=== PATIENT | male | born 1965 | race Caucasian/White ===

== ENCOUNTER 2016-07-04 09:36 | Emergency (ER) | payer MEDICAID, OTHER ==
[~2016-07-04] VITALS: Ht 182.9 cm; Wt 87.0 kg
[~2016-07-04 09:36] MED LIST: IBUP800T23 PO; TRAM50 PO
[2016-07-04 09:38] VITALS: BP 143/85; PULSE 82; RESP 20; TEMP 97.8; O2SAT 98
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
[2016-07-04] MEDS ORDERED: NAPR500 PO ×2 (10:53→11:08)
== END 2016-07-04 11:13 | disposition home or self-care (01) ==
LOC: NEPB 09:36
DX: S60.221A Contusion of right hand, initial encounter (principal); J45.909 Unspecified asthma, uncomplicated; J44.9 Chronic obstructive pulmonary disease, unspecified; F17.210 Nicotine dependence, cigarettes, uncomplicated; F12.10 Cannabis abuse, uncomplicated; Y04.0XXA Assault by unarmed brawl or fight, initial encounter; Y93.89 Activity, other specified; Y99.9 Unspecified external cause status
CPT/HCPCS: 73130; 99283

== ENCOUNTER 2016-11-06 11:46 | Emergency (ER) | payer MEDICAID ==
[~2016-11-06] VITALS: Ht 182.9 cm; Wt 90.0 kg
[~2016-11-06 11:46] MED LIST changes: -IBUP800T23 PO; +NAPR500 PO; -TRAM50 PO
[2016-11-06 11:48] VITALS: BP 129/82; PULSE 78; RESP 26; TEMP 98.4; O2SAT 99
[2016-11-06] MEDS ORDERED: SODIUM CHLOR 0.9% 1000 ML INJ 1,000 ML IV SCH (12:39)
[2016-11-06] MEDS ORDERED: SODIUM CHLORIDE 0.9% FLUSH 10 ML FLUSH IV FLUSH PRN (12:45)
[2016-11-06 13:00] VITALS: BP 130/83; PULSE 68; RESP 20; O2SAT 99
[2016-11-06] MEDS ORDERED: IBUP200T2 PO (13:16)
[2016-11-06] MEDS ORDERED: ASPI1POW8 (13:16)
[2016-11-06 13:29] LABS: AUTOMATED NEUTROPHIL # 8.9 TH/MM3 (1.8-7.7); BASOPHIL # 0.2 TH/MM3 (0-0.2); BASOPHIL % 1.6 % (0.0-2.0); EOSINOPHIL # 0.1 TH/MM3 (0-0.4); EOSINOPHIL % 0.7 % (0.0-4.0); HEMATOCRIT 49.5 % (39.0-51.0); HEMO FLAGS DIFF FINAL; LYMPH % 13.6 % (9.0-44.0); LYMPHOCYTE # 1.6 TH/MM3 (1.0-4.8); MEAN CELL VOLUME 92.8 FL (80.0-100.0); MEAN CORPUSCULAR HEMOGLOBIN 31.7 PG (27.0-34.0); MEAN CORPUSCULAR HGB CONC 34.1 % (32.0-36.0); MONO % 8.2 % (0.0-8.0); NEUT % 75.9 % (16.0-70.0); PLATELET COUNT 273 TH/MM3 (150-450); RED BLOOD COUNT 5.33 MIL/MM3 (4.50-5.90); RED CELL DISTRIBUTION WIDTH 12.6 % (11.6-17.2); WHITE BLOOD COUNT 11.7 TH/MM3 (4.0-11.0)
[2016-11-06 13:46] LABS: BICARBONATE 23.5 MEQ/L (21.0-32.0); MAGNESIUM 2.8 MG/DL (1.5-2.5); POTASSIUM 3.9 MEQ/L (3.5-5.1)
[2016-11-06 14:00] VITALS: BP 129/68; PULSE 68; RESP 17; O2SAT 97
[2016-11-06] MEDS ORDERED: SODIUM CHLOR 0.9% 1000 ML INJ 1,000 ML IV ONE (14:00)
[2016-11-06 14:04] LABS: CKMB 4.5 NG/ML (0.5-3.6)
--- NOTE | 2016-11-06 14:05 | PD ---
HPI Chief Complaint: GI Complaint Time Seen by Provider: 13:13 Travel History International Travel<30 days: No Contact w/Intl Traveler<30days: No Traveled to known affect area: No History of Present Illness HPI 51-year-old male here with complaint of nausea and body aches and muscle spasms. Patient works in a warm garage and states that despite drinking 1 gallon of water daily he is concerned he may be dehydrated. Notes bodyaches, muscle spasms and nausea. He has not had any change in mental status. PFSH Past Medical History Hx Anticoagulant Therapy: No Asthma: Yes Cardiovascular Problems: No Chemotherapy: No COPD: Yes Cerebrovascular Accident: No Diabetes: No Respiratory: Yes Past Surgical History Abdominal Surgery: Yes (HERNIA REPAIR) Social History Alcohol Use: Yes (beer a day) Tobacco Use: Yes (pack & half a day) Substance Use: Yes (marijuana few days ago) Allergies-Medications (Allergen,Severity, Reaction): Coded Allergies: Tramadol (Verified Adverse Reaction, Unknown, Skin Discoloration, 07/04/16) STATES HAS NO ALLERGIES, IS NOT ALLERGIC TO TRAMADOL Reported Meds & Prescriptions Reported Meds & Active Scripts Active Reported Bc Fast Pain Relief Powder (Aspirin-Caffeine Powder) 845-65 Mg Powderpack Ibuprofen 200 Mg Tab 200 Mg PO Q4H PRN Review of Systems Except as stated in HPI: all other systems reviewed are Neg Physical Exam Narrative GENERAL: Well-appearing male in no acute distress SKIN: Focused skin assessment warm/dry. HEAD: Normocephalic. EYES: No scleral icterus. No injection or drainage. ENT: Mucous membranes pink and moist. NECK: Supple CARDIOVASCULAR: Regular rate and rhythm. No murmur appreciated. RESPIRATORY: No accessory muscle use. Clear to auscultation. Breath sounds equal bilaterally. GASTROINTESTINAL: Abdomen soft, non-tender, nondistended. MUSCULOSKELETAL: No obvious deformities. No edema. NEUROLOGICAL: Awake and alert. Normal speech. PSYCHIATRIC: Appropriate mood and affect; insight and judgment normal. Data Data Last Documented VS Vital Signs Date Time Temp Pulse Resp B/P Pulse Ox O2 Delivery O2 Flow Rate FiO2 11/06/16 11:48 98.4 78 26 129/82 99 Orders Basic Metabolic Panel (Bmp) (11/06/16 12:39) Complete Blood Count With Diff (11/06/16 12:39) Iv Access Insert/Monitor (11/06/16 12:39) Oximetry (11/06/16 12:39) Sodium Chlor 0.9% 1000 Ml Inj (Ns 1000 M (11/06/16 12:39) Sodium Chloride 0.9% Flush (Ns Flush) (11/06/16 12:45) Creatine Kinase (Cpk) (11/06/16 12:39) Magnesium (Mg) (11/06/16 12:39) CKMB (11/06/16 13:05) CKMB% (11/06/16 13:05) Sodium Chlor 0.9% 1000 Ml Inj (Ns 1000 M (11/06/16 14:00) Labs Laboratory Tests Test 11/06/16 13:05 White Blood Count 11.7 TH/MM3 Red Blood Count 5.33 MIL/MM3 Hemoglobin 16.9 GM/DL Hematocrit 49.5 % Mean Corpuscular Volume 92.8 FL Mean Corpuscular Hemoglobin 31.7 PG Mean Corpuscular Hemoglobin 34.1 % Concent Red Cell Distribution Width 12.6 % Platelet Count 273 TH/MM3 Mean Platelet Volume 8.8 FL Neutrophils (%) (Auto) 75.9 % Lymphocytes (%) (Auto) 13.6 % Monocytes (%) (Auto) 8.2 % Eosinophils (%) (Auto) 0.7 % Basophils (%) (Auto) 1.6 % Neutrophils # (Auto) 8.9 TH/MM3 Lymphocytes # (Auto) 1.6 TH/MM3 Monocytes # (Auto) 1.0 TH/MM3 Eosinophils # (Auto) 0.1 TH/MM3 Basophils # (Auto) 0.2 TH/MM3 CBC Comment DIFF FINAL Differential Comment Sodium Level 127 MEQ/L Potassium Level 3.9 MEQ/L Chloride Level 92 MEQ/L Carbon Dioxide Level 23.5 MEQ/L Anion Gap 12 MEQ/L Blood Urea Nitrogen 26 MG/DL Creatinine 1.53 MG/DL Estimat Glomerular Filtration 49 ML/MIN Rate Random Glucose 86 MG/DL Calcium Level 9.4 MG/DL Magnesium Level 2.8 MG/DL Total Creatine Kinase 618 U/L MDM Medical Decision Making Medical Screen Exam Complete: Yes Emergency Medical Condition: Yes Medical Record Reviewed: Yes Differential Diagnosis 51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 History and exam are consistent with heat exhaustion, concern for dehydration, electrolyte abnormality, rhabdomyolysis. Clinically no change in mentation to suspect heat stroke. Narrative Course Patient placed on monitor, IV established and blood obtained. Given 1 L normal saline bolus. CBC, BMP, CPK and magnesium obtained and notable for sodium 127, BUN 26/creatinine 1.53. Magnesium slightly elevated at 2.8 and CPK 618. Patient was given second liter normal saline bolus with improvement of his symptoms will be discharged home. Diagnosis Primary Impression: Heat exhaustion Qualified Code: T67.5XXA - Heat exhaustion, initial encounter Additional Impressions: Dehydration Hyponatremia Rhabdomyolysis Referrals: [facility] as needed Patient Instructions: General Instructions, Heat Exhaustion (ED) Additional Instructions: Drink plenty of electrolyte-containing fluids and avoid prolonged heat exposure. Med/Other Pt SpecificInfo: No Change to Meds Disposition: 01 DISCHARGE HOME Condition: Stable Ronda Cunningham MD Nov 06, 2016 14:05
== END 2016-11-06 14:59 | disposition home or self-care (01) ==
LOC: NEPD 11:46
DX: T67.5XXA Heat exhaustion, unspecified, initial encounter (principal); E86.0 Dehydration; E87.1 Hypo-osmolality and hyponatremia; M62.82 Rhabdomyolysis; R11.0 Nausea; R52 Pain, unspecified; M62.838 Other muscle spasm; J44.9 Chronic obstructive pulmonary disease, unspecified; X30.XXXA Exposure to excessive natural heat, initial encounter
CPT/HCPCS: 80048; 82550; 82552; 83735; 85025; 99283; J7030

== ENCOUNTER 2016-11-11 08:02 | Emergency (ER) | payer MEDICAID ==
[~2016-11-11] VITALS: Ht 182.9 cm; Wt 90.0 kg
[~2016-11-11 08:02] MED LIST changes: +ASPI1POW8; +IBUP200T2 PO; -NAPR500 PO
[2016-11-11 08:03] VITALS: BP 133/84; PULSE 72; RESP 16; TEMP 98.5; O2SAT 97
[2016-11-11] MEDS ORDERED: SODIUM CHLOR 0.9% 1000 ML INJ 1,000 ML IV SCH (08:23)
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
[2016-11-11] MEDS ORDERED: ONDANSETRON HCL 4 MG/2 ML VIAL IVP ONE (08:30)
[2016-11-11] MEDS ORDERED: SODIUM CHLORIDE 0.9% FLUSH 10 ML FLUSH IVF PRN (08:30)
[2016-11-11] MEDS ORDERED: MORPHINE SULFATE 4 MG/ML INJ IV ONE (08:30)
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
[2016-11-11 09:59] LABS: AUTOMATED NEUTROPHIL # 6.9 TH/MM3 (1.8-7.7); BASOPHIL # 0.1 TH/MM3 (0-0.2); EOSINOPHIL # 0.3 TH/MM3 (0-0.4); EOSINOPHIL % 2.8 % (0.0-4.0); HEMATOCRIT 43.8 % (39.0-51.0); HEMO FLAGS DIFF FINAL; LYMPH % 19.7 % (9.0-44.0); MEAN CELL VOLUME 93.8 FL (80.0-100.0); MEAN CORPUSCULAR HEMOGLOBIN 32.3 PG (27.0-34.0); MEAN CORPUSCULAR HGB CONC 34.5 % (32.0-36.0); NEUT % 68.5 % (16.0-70.0); PLATELET COUNT 268 TH/MM3 (150-450); RED BLOOD COUNT 4.67 MIL/MM3 (4.50-5.90); RED CELL DISTRIBUTION WIDTH 13.3 % (11.6-17.2)
[2016-11-11 10:09] LABS: APTT (PATIENT) 33.8 SEC (24.3-30.1); INTERNATIONAL NORMALIZED RATIO 0.9 RATIO; PROTHROMBIN TIME - PATIENT 10.3 SEC (9.8-11.6)
[2016-11-11 10:16] LABS: POTASSIUM 4.3 MEQ/L (3.5-5.1)
[2016-11-11 10:37] VITALS: PULSE 58; RESP 16; O2SAT 99
[2016-11-11] MEDS ORDERED: IOHEXOL 350 MG/ML 10 ML VIAL (for RAD DIAG) IV ONE (11:02)
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
[2016-11-11] MEDS ORDERED: IBUP400T20 PO (11:40)
== END 2016-11-11 13:00 | disposition home or self-care (01) ==
LOC: NEPE 08:02
DX: S20.211A Contusion of right front wall of thorax, initial encounter (principal); S96.919A Strain of unspecified muscle and tendon at ankle and foot level, unspecified foot, initial encounter; S86.921A Laceration of unspecified muscle(s) and tendon(s) at lower leg level, right leg, initial encounter; Y04.2XXA Assault by strike against or bumped into by another person, initial encounter; Y93.9 Activity, unspecified; Y92.9 Unspecified place or not applicable; Y99.9 Unspecified external cause status
CPT/HCPCS: 71260; 73564; 73610; 74177; 80048; 85025; 85610; 85730; 86850; 86900; 86901; 96361; 96374; 96375; 99285; J2270; J2405; J7030; Q9967